=== PATIENT | male | born 1985 | race American Indian/Alaskan Native ===

== ENCOUNTER 2017-02-05 06:25 | Emergency (ER) | payer OTHER ==
[2017-02-05 08:05] LABS: Anion Gap 25 mmol/L; BUN/Creatinine Ratio 12.72; Blood Urea Nitrogen 14 mg/dL (9-20); Calcium 9.9 mg/dL (8.4-10.2); Carbon Dioxide 23 mmol/L (22-30); Chloride 89.9 mmol/L (98-107); Glucose 77 mg/dL (75-100); Potassium 4.6 mmol/L (3.6-5.0); Sodium 133 mmol/L (137-145)
[2017-02-05 08:08] LABS: Basophils % (Auto) 0.3 % (0.0-1.8); Hematocrit 50.3 % (35.5-45.6); Hemoglobin 16.4 gm/dl (11.8-15.2); Mean Corpuscular HGB Conc 33 % (32-34); Mean Corpuscular Hemoglobin 31 pg (28-32); Mean Corpuscular Volume 96 fl (84-94); Platelet Count 283 K/mm3 (140-440); Red Blood Count 5.25 M/mm3 (3.65-5.03); Red Cell Distribution Width 14.4 % (13.2-15.2); White Blood Count 13.9 K/mm3 (4.5-11.0)
[2017-02-05 08:16] LABS: Urine Drugs of Abuse Note Disclamer
[2017-02-05] MEDS ORDERED: BOOSTRIX IM ONE (08:44)
[2017-02-05] MEDS ORDERED: BACTRIM DS PO ONE (08:44)
[2017-02-05] MEDS ORDERED: XYLOCAINE 2% INFILTRATI ONE (08:44)
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
[2017-02-05 09:00] LABS: Bilirubin,Urine NEG (Negative); Blood,Urine MOD (Negative); Ketones,Urine 20 mg/dL (Negative); Leukocyte Esterase,Urine SM (Negative); Mucus,Urine FEW /HPF; Nitrite,Urine NEG (Negative)
--- NOTE | 2017-02-05 09:47 | XRay Report ---
LEFT HAND: History: Trauma. The bony architecture is intact. Bony alignment is normal. No soft tissue abnormalities are seen. The joint spaces appear preserved. IMPRESSION: Normal left hand.
[2017-02-05] MEDS ORDERED: TRIPLE ANTIBIOTIC TP ONE (11:06)
[2017-02-05] MEDS ORDERED: ULTRAM PO ONE (22:00)
[2017-02-05] MEDS: BACTRIM DS PO SCH (22:17)
[2017-02-06] MEDS: BACTRIM DS PO SCH ×2 (09:53→22:16)
[2017-02-07] MEDS: BACTRIM DS PO SCH (13:20)
[2017-02-07 21:53] VITALS: BP 99/59
== END 2017-02-07 21:20 ==
LOC: ED 06:25 → EEVIPCON 06:25 → ED 02-07 21:20
DX: S61.412A Laceration without foreign body of left hand, initial encounter (principal); R45.851 Suicidal ideations; F17.200 Nicotine dependence, unspecified, uncomplicated; X58.XXXA Exposure to other specified factors, initial encounter; Y93.9 Activity, unspecified; Y99.9 Unspecified external cause status; Y92.89 Other specified places as the place of occurrence of the external cause
CPT/HCPCS: 12002; 36415; 73130; 80048; 80307; 81001; 85025; 90471; 90715; 99285; G0480; 80320; A6250